=== PATIENT | male | born 1990 | race Caucasian/White ===

== ENCOUNTER 2017-01-02 00:48 | Emergency (ER) | payer OTHER, BC ==
[~2017-01-02] VITALS: Ht 177.8 cm; Wt 69.3 kg
[~2017-01-02 00:48] MED LIST: ADDERALL XR 1515 MG PO; ADDERALL XR 2020 MG PO; ATIVAN0.5 MG PO; ATIVAN1 MG PO; BACTRIM,SEPT1 TABLET PO; BENTYL10 MG PO; CELEXA40 MG PO; CITALOPRAM HBR40 MG PO; KLONOPIN0.5 M1 PO; LORAZEPAM0.5 MG PO; LORAZEPAM1 MG PO; MELATIN3 MG PO; MELOXICAM15 MG PO; MOTRIN800 MG PO; NAPROSYN500 MG PO; NO HOME MEDS; OMEPRAZOLE40 M1 PO; PAROXETINE HCL10 MG PO; PAROXETINE HCL20 MG PO; PAXIL10 MG PO; PEN-VEE K,VEET500 MG PO; PEPCID20 MG PO; PROAIR HFA8.5 GM IH; PROTONIX40 MG PO; TRAMADOL HCL50 MG PO; ULTRAM50 MG PO; VALIUM5 MG PO; VICODIN 5-3001 EACH PO; XANAX0.5 MG PO; ZITHROMAX Z-PA250 MG PO; ZOFRAN4 MG PO
[2017-01-02] MEDS ORDERED: FLEXERIL10 MG PO (02:41)
[2017-01-02] MEDS ORDERED: NAPROSYN500 MG PO (02:41)
[2017-01-02 02:55] VITALS: BP 122/73
== END 2017-01-02 02:56 | disposition home or self-care (01) ==
LOC: EME 00:48 → EXP 00:48
DX: S09.90XA Unspecified injury of head, initial encounter (principal); S16.1XXA Strain of muscle, fascia and tendon at neck level, initial encounter; S46.912A Strain of unspecified muscle, fascia and tendon at shoulder and upper arm level, left arm, initial encounter; S20.212A Contusion of left front wall of thorax, initial encounter; V40.0XXA Car driver injured in collision with pedestrian or animal in nontraffic accident, initial encounter; Z72.0 Tobacco use; Z91.5 Personal history of self-harm
CPT/HCPCS: 70450; 71101; 72125; 73030; 99281; 99283

== ENCOUNTER 2017-01-04 13:46 | Emergency (ER) | payer OTHER, BC ==
[~2017-01-04] VITALS: Ht 177.8 cm; Wt 70.0 kg
[~2017-01-04 13:46] MED LIST changes: +FLEXERIL10 MG PO
[2017-01-04] MEDS ORDERED: BACLOFEN10 MG PO (15:02)
[2017-01-04] MEDS ORDERED: VOLTAREN50 MG PO (15:02)
[2017-01-04] MEDS ORDERED: ULTRAM50 MG PO (15:02)
[2017-01-04 15:21] VITALS: BP 127/54
== END 2017-01-04 15:22 | disposition home or self-care (01) ==
LOC: EME 13:46
DX: G44.309 Post-traumatic headache, unspecified, not intractable (principal); R07.89 Other chest pain; M54.2 Cervicalgia; F17.200 Nicotine dependence, unspecified, uncomplicated; Z76.0 Encounter for issue of repeat prescription
CPT/HCPCS: 99281; 99283

== ENCOUNTER 2017-01-07 23:52 | Emergency (ER) | payer OTHER, BC ==
[~2017-01-07] VITALS: Ht 177.8 cm; Wt 71.5 kg
[~2017-01-07 23:52] MED LIST changes: +BACLOFEN10 MG PO; +VOLTAREN50 MG PO
[2017-01-08] MEDS ORDERED: VALIUM5 MG PO (01:04)
[2017-01-08] MEDS ORDERED: ULTRACET1 TABLET PO (01:04)
[2017-01-08] MEDS ORDERED: INDOCIN50 MG PO (01:04)
[2017-01-08 01:15] VITALS: BP 122/73
== END 2017-01-08 01:25 | disposition home or self-care (01) ==
LOC: EME 23:52
DX: S16.1XXA Strain of muscle, fascia and tendon at neck level, initial encounter (principal); S29.011A Strain of muscle and tendon of front wall of thorax, initial encounter; S40.012A Contusion of left shoulder, initial encounter; F17.200 Nicotine dependence, unspecified, uncomplicated; V89.2XXD Person injured in unspecified motor-vehicle accident, traffic, subsequent encounter
CPT/HCPCS: 99281; 99284; J1885

== ENCOUNTER 2017-01-23 22:51 | Emergency (ER) | payer OTHER, BC ==
[~2017-01-23] VITALS: Ht 177.8 cm; Wt 70.5 kg
[~2017-01-23 22:51] MED LIST changes: +INDOCIN50 MG PO; +ULTRACET1 TABLET PO
[2017-01-23] MEDS ORDERED: NAPROXEN500 MG PO (23:48)
[2017-01-23] MEDS ORDERED: LIDODERM 5% P1 PATCH TD (23:48)
[2017-01-23 23:55] VITALS: BP 113/78
== END 2017-01-23 23:56 | disposition home or self-care (01) ==
LOC: EME 22:51
DX: S16.1XXD Strain of muscle, fascia and tendon at neck level, subsequent encounter (principal); M94.0 Chondrocostal junction syndrome [Tietze]; Z72.0 Tobacco use
CPT/HCPCS: 99281; 99284; J1885

== ENCOUNTER 2017-05-18 23:16 | Emergency (ER) | payer BC, OTHER ==
[~2017-05-18] VITALS: Ht 175.3 cm; Wt 71.3 kg
[~2017-05-18 23:16] MED LIST changes: +LIDODERM 5% P1 PATCH TD; +NAPROXEN500 MG PO
[2017-05-18 23:19] VITALS: BP 136/79
[2017-05-19] MEDS ORDERED: NAPROXEN500 MG PO (00:56)
== END 2017-05-19 01:03 | disposition home or self-care (01) ==
LOC: EME 23:16
DX: S63.502A Unspecified sprain of left wrist, initial encounter (principal); W22.01XA Walked into wall, initial encounter; Y93.02 Activity, running; Y92.39 Other specified sports and athletic area as the place of occurrence of the external cause; F17.210 Nicotine dependence, cigarettes, uncomplicated
CPT/HCPCS: 73110; 99281; 99284

== ENCOUNTER 2017-05-28 03:21 | Emergency (ER) | payer BC, OTHER ==
[~2017-05-28] VITALS: Ht 177.8 cm; Wt 70.0 kg
[2017-05-28 03:22] VITALS: BP 132/86
[2017-05-28 05:38] LABS: HEMATOCRIT 46.3 % (38.0-50.0); MCH 29.7 PG (29.0-34.0); MCHC 34.1 G/DL (30.0-36.0); MEAN PLAT.VOLUME 9.3 uM^3 (9.0-12.4); PLATELET COUNT 389 K/uL (156-360); RBC DIS.WIDTH-CV 13.3 % (11.8-14.6); RED BLOOD COUNT 5.32 M/uL (4.00-5.50); WHITE BLOOD COUNT 11.4 K/uL (4.1-10.2)
[2017-05-28 06:00] LABS: ANION GAP 14 MEQ/L (2-14); CHLORIDE 105 MEQ/L (99-109); POTASSIUM 3.8 MEQ/L (3.7-5.4); SAMPLE HEMOLYSIS CHECK 1; SAMPLE ICTERIC CHECK 0; SAMPLE LIPEMIA CHECK 1; SODIUM 140 MEQ/L (136-147); TOTAL BILIRUBIN 0.5 MG/DL (0.0-1.0)
[2017-05-28 06:06] LABS: ALKALINE PHOSPHATASE 113 IU/L (3-129); GFR ESTIMATE (CALCULATED) > 59 mL/min/; GLUCOSE 99 mg/dL (70-99); UREA NITROGEN (BUN) 12 mg/dL (9-23)
[2017-05-28 06:10] LABS: TROP-I INTERPRETATION NEGATIVE; TROPONIN-I < 0.01 ng/mL (0.0-0.30)
[2017-05-28] MEDS ORDERED: AUGMENTIN875 MG PO (06:36)
[2017-05-28] MEDS ORDERED: HYCODAN SYRUP480 ML PO (06:36)
[2017-05-28] MEDS ORDERED: VENTOLIN HFA18 GM IH (06:36)
== END 2017-05-28 06:34 | disposition home or self-care (01) ==
LOC: EME 03:21
PROVIDERS: Emergency Medicine
DX: J20.9 Acute bronchitis, unspecified (principal); J01.90 Acute sinusitis, unspecified; G56.02 Carpal tunnel syndrome, left upper limb; F17.200 Nicotine dependence, unspecified, uncomplicated
CPT/HCPCS: 71020; 80053; 84484; 85027; 93005; 94640

== ENCOUNTER 2017-06-05 14:14 | Emergency (ER) | payer BC, OTHER ==
[~2017-06-05] VITALS: Ht 177.8 cm; Wt 70.4 kg
[~2017-06-05 14:14] MED LIST changes: +AUGMENTIN875 MG PO; +HYCODAN SYRUP480 ML PO; +VENTOLIN HFA18 GM IH
[2017-06-05] MEDS ORDERED: TRAZODONE HCL50 MG PO (17:06)
[2017-06-05] MEDS ORDERED: CLONIDINE HCL0.1 MG PO (17:06)
[2017-06-05] MEDS ORDERED: INDOCIN50 MG PO (17:13)
[2017-06-05 17:27] VITALS: BP 97/67
== END 2017-06-05 18:03 | disposition home or self-care (01) ==
LOC: EME 14:14
DX: F11.23 Opioid dependence with withdrawal (principal); F17.200 Nicotine dependence, unspecified, uncomplicated
CPT/HCPCS: 99281; 99284

== ENCOUNTER 2017-07-08 17:52 | Emergency (ER) | payer OTHER, BC ==
[~2017-07-08] VITALS: Ht 177.8 cm; Wt 72.7 kg
[~2017-07-08 17:52] MED LIST changes: +CLONIDINE HCL0.1 MG PO; +TRAZODONE HCL50 MG PO
[2017-07-08 20:53] LABS: AMPHETAMINE NEGATIVE (500 ng/mL); BARBITURATES NEGATIVE (200 ng/mL); BENZODIAZEPINES NEGATIVE (150 ng/mL); COCAINE NEGATIVE (150 ng/mL); INTERNAL CONTROLS VALID? YES; METHADONE NEGATIVE (200 ng/mL); METHAMPHETAMINE NEGATIVE (500 ng/mL); OPIATES (MORPHINE) NEGATIVE (100 ng/mL); OXYCODONE NEGATIVE (100 ng/mL); PHENCYCLIDINE NEGATIVE (25 ng/mL); PROPOXYPHENE NEGATIVE (300 ng/mL); THC CANNABINOIDS NEGATIVE (50 ng/mL); TRICYCLIC ANTIDEPRESSANTS PRESUMPTIVE POSITIVE (300 ng/mL)
[2017-07-08 21:08] VITALS: BP 127/75
[2017-07-09] MEDS ORDERED: PAXIL40 MG PO (10:50)
[2017-07-09] MEDS ORDERED: SEROQUEL200 MG PO (10:51)
[2017-07-09] MEDS ORDERED: SUBOXONE 8 MG-1 EAC2 SL ×2 (10:56→10:59)
== END 2017-07-08 21:09 | disposition home or self-care (01) ==
LOC: EME 17:52
PROVIDERS: Physician Assistant Medical
PROC: 3E0234Z Introduction of Serum, Toxoid and Vaccine into Muscle, Percutaneous Approach (ICD-10-PCS; principal; 2017-07-08)
DX: S09.90XA Unspecified injury of head, initial encounter (principal); M54.2 Cervicalgia; R07.9 Chest pain, unspecified; M25.551 Pain in right hip; M54.5 Low back pain; S40.812A Abrasion of left upper arm, initial encounter; S40.811A Abrasion of right upper arm, initial encounter; V43.53XA Car driver injured in collision with pick-up truck in traffic accident, initial encounter; Y92.410 Unspecified street and highway as the place of occurrence of the external cause; F17.200 Nicotine dependence, unspecified, uncomplicated; Z23 Encounter for immunization
CPT/HCPCS: 70450; 71020; 72125; 73502; 99281; 99285; G0480; J1885

== ENCOUNTER 2017-07-09 03:51 | Inpatient (IN) | payer OTHER ==
[~2017-07-09] VITALS: Ht 177.8 cm; Wt 68.1 kg
[2017-07-09 04:15] LABS: HEMATOCRIT 41.6 % (38.0-50.0); MCH 29.2 PG (29.0-34.0); MCHC 32.7 G/DL (30.0-36.0); MCV 89.3 FL (86-99); MEAN PLAT.VOLUME 9.1 uM^3 (9.0-12.4); PLATELET COUNT 410 K/uL (156-360); RBC DIS.WIDTH-CV 12.5 % (11.8-14.6); RBC DIS.WIDTH-SD 41.1 % (39-53); RED BLOOD COUNT 4.66 M/uL (4.00-5.50); WHITE BLOOD COUNT 13.7 K/uL (4.1-10.2)
[2017-07-09 04:25] LABS: CHLORIDE 105 mEq/L (99-109); POTASSIUM 3.5 mEq/L (3.7-5.4); SODIUM 142 mEq/L (136-147)
[2017-07-09 04:27] LABS: GLUCOSE 97 mg/dL (70-99)
[2017-07-09 04:28] LABS: ANION GAP 12 MEQ/L (2-14)
[2017-07-09 04:29] LABS: TOTAL BILIRUBIN 0.4 mg/dL (0.0-1.0)
[2017-07-09 04:30] LABS: SERUM ETHYL ALCOHOL < 10 mg/dL
[2017-07-09 04:31] LABS: ALKALINE PHOSPHATASE 113 IU/L (3-129); GFR ESTIMATE (CALCULATED) > 59 mL/min/
[2017-07-09 04:32] LABS: UREA NITROGEN (BUN) 11 mg/dL (9-23)
[2017-07-09 10:09] VITALS: BP 114/66
[2017-07-09] MEDS ORDERED: PAXIL40 MG PO (10:50)
[2017-07-09] MEDS ORDERED: SEROQUEL200 MG PO (10:51)
[2017-07-09] MEDS ORDERED: SUBOXONE 8 MG-1 EAC2 SL ×2 (10:56→10:59)
[2017-07-09 15:32] VITALS: BP 111/53
[2017-07-10 08:00] VITALS: BP 106/56
[2017-07-10 17:45] VITALS: BP 96/53
[2017-07-11 07:26] VITALS: BP 101/52
[2017-07-11 16:01] VITALS: BP 114/67
[2017-07-12 07:18] VITALS: BP 100/50
[2017-07-12] MEDS ORDERED: PAXIL40 MG PO (10:21)
[2017-07-12] MEDS ORDERED: QUETIAPINE FUM300 MG PO (10:21)
[2017-07-12] MEDS ORDERED: TRIPLE ANTIB28.35 GM TP (10:21)
[2017-07-12] MEDS ORDERED: BUPROPION HCL100 M1 PO (10:21)
== END 2017-07-12 14:00 | disposition home or self-care (01) | DRG 880 ==
LOC: EME → EDBD 03:51 → EME 03:51 → 1WEST 05:53 → EDOF 05:53 → ENRESERV 10:00 → 1WEST 10:04
PROVIDERS: Emergency Medicine
DX: R45.851 Suicidal ideations (principal); F33.1 Major depressive disorder, recurrent, moderate; S61.411A Laceration without foreign body of right hand, initial encounter; S41.111A Laceration without foreign body of right upper arm, initial encounter; F90.9 Attention-deficit hyperactivity disorder, unspecified type; F11.10 Opioid abuse, uncomplicated; F17.200 Nicotine dependence, unspecified, uncomplicated; Z91.5 Personal history of self-harm
CPT/HCPCS: 80053; 81003; 85027; 90837; 99281; 99285; G0480; J0574; Q0177

== ENCOUNTER 2017-08-23 01:40 | Emergency (ER) | payer OTHER ==
[~2017-08-23] VITALS: Ht 177.8 cm; Wt 75.0 kg
[~2017-08-23 01:40] MED LIST changes: +BUPROPION HCL100 M1 PO; +PAXIL40 MG PO; +QUETIAPINE FUM300 MG PO; +SEROQUEL200 MG PO; +SUBOXONE 8 MG-1 EAC2 SL; +TRIPLE ANTIB28.35 GM TP
[2017-08-23 02:33] LABS: BASOPHIL COUNT 0.1 K/uL (0-0.1); EOSINOPHIL (%) 4.4 % (0-5); EOSINOPHIL COUNT 0.3 K/uL (0-0.3); HEMATOCRIT 38.5 % (38.0-50.0); IMMATURE GRANULOCYTE (%) 0.2 % (0.0-0.7); INSTRUMENT ABS NEUTROPHIL CT 3.1 K/uL; LYMPHOCYTE COUNT 2.4 K/uL (1.0-2.8); MCH 29.3 PG (29.0-34.0); MCHC 32.7 G/DL (30.0-36.0); MCV 89.5 FL (86-99); MEAN PLAT.VOLUME 9.4 uM^3 (9.0-12.4); MONOCYTE (%) 8.7 % (3-12); MONOCYTE COUNT 0.6 K/uL (0-0.8); NEUTROPHIL (%) 48.1 % (45-76); NEUTROPHIL COUNT 3.1 K/uL (1.8-6.4); PLATELET COUNT 300 K/uL (156-360); RBC DIS.WIDTH-SD 42.5 % (39-53); WHITE BLOOD COUNT 6.4 K/uL (4.1-10.2)
[2017-08-23 02:43] LABS: CHLORIDE 105 mEq/L (99-109)
[2017-08-23 02:44] LABS: POTASSIUM 3.4 mEq/L (3.7-5.4); SODIUM 141 mEq/L (136-147)
[2017-08-23 02:47] LABS: ANION GAP 11 MEQ/L (2-14)
[2017-08-23 02:48] LABS: TOTAL BILIRUBIN 0.4 mg/dL (0.0-1.0)
[2017-08-23 03:08] LABS: GLUCOSE 129 mg/dL (70-99)
[2017-08-23 03:11] LABS: ALKALINE PHOSPHATASE 83 IU/L (3-129); GFR ESTIMATE (CALCULATED) > 59 mL/min/; SERUM ETHYL ALCOHOL < 10 mg/dL
[2017-08-23 03:13] LABS: UREA NITROGEN (BUN) 17 mg/dL (9-23)
[2017-08-23] MEDS ORDERED: PAXIL40 MG PO (04:34)
[2017-08-23] MEDS ORDERED: WELLBUTRIN100 MG PO (04:34)
[2017-08-23 04:53] VITALS: BP 94/60
== END 2017-08-23 04:53 | disposition home or self-care (01) ==
LOC: EME 01:40
PROVIDERS: Emergency Medicine
DX: F43.20 Adjustment disorder, unspecified (principal); F33.1 Major depressive disorder, recurrent, moderate; F17.200 Nicotine dependence, unspecified, uncomplicated
CPT/HCPCS: 80053; 85025; 90837; 99281; 99284; G0480